=== PATIENT | male | born 1975 | race Hispanic/Latino ===

== ENCOUNTER 2022-09-11 21:49 | Emergency (ER) | payer BC ==
--- OUTSIDE RECORDS SUMMARY | 2022-09-11 21:54 | XMS REPORT | Continuity of Care Document ---
:1975 Author Organization [facility] t Address [address] [facility] [address] [place] [address] Care Team Providers Name Role Phone BUSHRA GOOD Primary Care Physician Unavailable BUSHRA GOOD Attending Clinician Unavailable BUSHRA GOOD Attending Clinician Unavailable 2, [facility] Attending Clinician Unavailable Doctor Unassigned, Pray Attending Clinician Unavailable Chloe Mckeon Attending Clinician Rosemary Santana RN Attending Clinician Unavailable LEXI LAL Attending Clinician Unavailable Only, Michel Db Test Attending Clinician Unavailable Lexi Lal PA-C Attending Clinician CHLOE TINOCO Attending Clinician Unavailable Pina Croonado Attending Clinician PINA MCKENZIE Attending Clinician Unavailable Lab, [facility] Fam Pob I Attending Clinician Unavailable Provider, [facility] Attending Clinician Unavailable Payers Payer Name Policy Type Policy Number Effective Date Expiration Date S [facility] [id number] 2015 00:00:00 Problems Condition Condition Condition Status Onset Resolution Last Treating Co mments Source Name Details Category Date Date Treatment Clinician Date Essential Essential Disease Active Uni vers hypertensi hypertensi 6-14 it y of on on 00:00: [address] Acute left Acute left Disease Active U nivers ankle pain ankle pain 6-14 it y of 00:00: [address] No known No known Disease Unive rs active active ity of problems problems [facility] Allergies, Adverse Reactions, Alerts Allergy Allergy Status Severity Reaction(s) Onset Inactive Treating Comm ents Source Name Type Date Date Clinician NO KNOWN Drug Active Univers ALLERGIE Class ity of S [facility] Social History Social Habit Start Date Stop Date Quantity Comments Source Exposure to 2022-04-19 2022-04-29 Not sure [facility]-CoV-2 00:00:00 08:07:00 [facility] (event) [facility] Tobacco use and 2022-04-29 2022-04-29 Smokeless tobacco Un iversity of exposure 00:00:00 00:00:00 non-user [facility] Alcohol intake 2022-04-29 2022-04-29 Ex-drinker [facility] 00:00:00 00:00:00 (finding) [facility] Sex Ass[birth year] Universit y of 00:00:00 00:00:00 [facility] Smoking Status Start Date Stop Date Source Unknown if ever smoked [facility] Never smoked tobacco [facility] Medications Ordered Filled Start Stop Current Ordering Indication Dosage Frequency Signature Comments Components Source Medication Medication Date Date Medication? Clinician (SIG) Name Name lisinopriL 2021-05 Yes [id number] 10mg Take 1 U nivers 10 mg 2-14 tablet by ity of tablet 00:00: mouth in [place] 00 the Medical morning. [facility] lisinopriL 2021-05 Yes [id number] 10mg Take 1 U nivers 10 mg 2-14 tablet by ity of tablet 00:00: mouth in [place] 00 the Medical morning. [facility] lisinopriL 2021-05 Yes [id number] 10mg Take 1 U nivers 10 mg 2-14 tablet by ity of tablet 00:00: mouth in [place] 00 the Medical morning. [facility] Labs required prior to next refill lisinopriL 2021-05 Yes [id number] 10mg Take 1 U nivers 10 mg 2-14 tablet by ity of tablet 00:00: mouth in [place] 00 the Medical morning. [facility] required prior to next refill lisinopriL 2021-05 [id number] 10mg Take 1 Univers 10 mg 2-14 12-14 tablet by ity of tablet 00:00: 00:00 mouth in [place] 00 :00 the Medical morning. [facility] vitamin Yes 50ug Take 50 Univers B-12 7-15 mcg by ity of (VITAMIN 19:49: mouth [place] B-12) 100 56 daily. Medical mcg tablet Branch vitamin Yes 50ug Take 50 Univers B-12 7-15 mcg by ity of (VITAMIN 19:49: mouth [place] B-12) 100 56 daily. Medical mcg tablet Branch vitamin Yes 50ug Take 50 Univers B-12 7-15 mcg by ity of (VITAMIN 14:49: mouth [place] B-12) 100 56 daily. Medical mcg tablet Branch vitamin Yes 50ug Take 50 Univers B-12 7-15 mcg by ity of (VITAMIN 14:49: mouth [place] B-12) 100 56 daily. Medical mcg tablet Branch vitamin Yes 50ug Take 50 Univers B-12 7-15 mcg by ity of (VITAMIN 14:49: mouth [place] B-12) 100 56 daily. Medical mcg tablet Branch vitamin Yes 50ug Take 50 Univers B-12 7-15 mcg by ity of (VITAMIN 14:49: mouth [place] B-12) 100 56 daily. Medical mcg tablet Branch vitamin Yes 50ug Take 50 Univers B-12 7-15 mcg by ity of (VITAMIN 14:49: mouth [place] B-12) 100 56 daily. Medical mcg tablet Branch vitamin Yes 50ug Take 50 Univers B-12 7-15 mcg by ity of (VITAMIN 14:49: mouth [place] B-12) 100 56 daily. Medical mcg tablet Branch vitamin Yes 50ug Take 50 Univers B-12 7-15 mcg by ity of (VITAMIN 14:49: mouth [place] B-12) 100 56 daily. Medical mcg tablet Branch vitamin Yes 50ug Take 50 Univers B-12 7-15 mcg by ity of (VITAMIN 14:49: mouth [place] B-12) 100 56 daily. Medical mcg tablet Branch vitamin Yes 50ug Take 50 Univers B-12 7-15 mcg by ity of (VITAMIN 14:49: mouth [place] B-12) 100 56 daily. Medical mcg tablet Branch methylPREDN Yes [id number] Take by Univers ISolone 4 6-14 105 mouth ity of mg tablets 00:00: [place]-INSTRU [place] 00 CTIONS. Medical follow Branch package directions lisinopriL 2021-0 Yes [id number] 10mg Take 1 U nivers 10 mg 6-14 tablet by ity of tablet 00:00: mouth [place] 00 daily. Medical Branch methylPREDN 2020-0 Yes [id number] Take by Univers ISolone 4 6-14 105 mouth ity of mg tablets 00:00: SEE-INSTRU [place] 00 CTIONS. Medical follow Branch package directions lisinopriL 2020-0 Yes [id number] 10mg Take 1 U nivers 10 mg 6-14 tablet by ity of tablet 00:00: mouth [place] 00 daily. Medical Branch methylPREDN 2020-0 Yes [id number] Take by Univers ISolone 4 6-14 105 mouth ity of mg tablets 00:00: SEE-INSTRU [place] 00 CTIONS. Medical follow Branch package directions lisinopriL 2020-0 Yes [id number] 10mg Take 1 U nivers 10 mg 6-14 tablet by ity of tablet 00:00: mouth [place] 00 daily. Medical Branch methylPREDN 2020-0 Yes [id number] Take by Univers ISolone 4 6-14 105 mouth ity of mg tablets 00:00: SEE-INSTRU [place] 00 CTIONS. Medical follow Branch package directions lisinopriL 2020-0 Yes [id number] 10mg Take 1 U nivers 10 mg 6-14 tablet by ity of tablet 00:00: mouth [place] 00 daily. Medical Branch methylPREDN 2020-0 Yes [id number] Take by Univers ISolone 4 6-14 105 mouth ity of mg tablets 00:00: SEE-INSTRU [place] 00 CTIONS. Medical follow Branch package directions lisinopriL 2020-0 Yes [id number] 10mg Take 1 U nivers 10 mg 6-14 tablet by ity of tablet 00:00: mouth [place] 00 daily. Medical Branch methylPREDN 2020-0 Yes [id number] Take by Univers ISolone 4 6-14 105 mouth ity of mg tablets 00:00: SEE-INSTRU [place] 00 CTIONS. Medical follow Branch package directions lisinopriL 2020-0 Yes [id number] 10mg Take 1 U nivers 10 mg 6-14 tablet by ity of tablet 00:00: mouth [place] 00 daily. Medical Branch methylPREDN 2020-0 Yes [id number] Take by Univers ISolone 4 6-14 105 mouth ity of mg tablets 00:00: SEE-INSTRU [place] 00 CTIONS. Medical follow Branch package directions lisinopriL 2020-0 Yes [id number] 10mg Take 1 U nivers 10 mg 6-14 tablet by ity of tablet 00:00: mouth [place] 00 daily. Medical Branch methylPREDN 2020-0 Yes [id number] Take by Univers ISolone 4 6-14 105 mouth ity of mg tablets 00:00: SEE-INSTRU [place] 00 CTIONS. Medical follow Branch package directions lisinopriL 0 Yes [id number] 10mg Take 1 U nivers 10 mg 6-14 tablet by ity of tablet 00:00: mouth [place] 00 daily. Medical Branch methylPREDN 2020-0 Yes [id number] Take by Univers ISolone 4 6-14 105 mouth ity of mg tablets 00:00: SEE-INSTRU [place] 00 CTIONS. Medical follow Branch package directions lisinopriL 0 Yes [id number] 10mg Take 1 U nivers 10 mg 6-14 tablet by ity of tablet 00:00: mouth [place] 00 daily. Medical Branch methylPREDN 2020-0 2- No [id number] Take by [facility] ISolone 4 6-14 12-14 105 mouth ity of mg tablets 00:00: 00:00 SEE-INSTRU [place] 00 :00 CTIONS. Medical follow Branch package directions lisinopriL 2- No [id number] 10mg Take 1 Univers 10 mg 6-14 12-14 tablet by ity of tablet 00:00: 00:00 mouth [place] 00 :00 daily. Medical Branch methylPREDN 2020-0 2- No [id number] Take by Univers ISolone 4 6-14 12-14 105 mouth ity of mg tablets 00:00: 00:00 SEE-INSTRU [place] 00 :00 CTIONS. Medical follow Branch package directions lisinopriL 2020-0 2- No [id number] 10mg Take 1 Univers 10 mg 6-14 12-14 tablet by ity of tablet 00:00: 00:00 mouth [place] 00 :00 daily. Medical Branch methylPREDN 2020-0 2- No [id number] Take by Univers ISolone 4 6-14 12-14 105 mouth ity of mg tablets 00:00: 00:00 SEE-INSTRU [place] 00 :00 CTIONS. Medical follow Branch package directions lisinopriL 2- No [id number] 10mg Take 1 Univers 10 mg 6-14 12-14 tablet by ity of tablet 00:00: 00:00 mouth [place] 00 :00 daily. Medical Branch vitamin Yes 50ug Take 50 Univers B-12 5-13 mcg by ity of (VITAMIN 18:16: mouth [place] B-12) 100 15 daily. Medical mcg tablet Branch vitamin Yes 50ug Take 50 Univers B-12 5-13 mcg by ity of (VITAMIN 18:16: mouth [place] B-12) 100 15 daily. Medical mcg tablet Branch vitamin Yes 50ug Take 50 Univers B-12 5-13 mcg by ity of (VITAMIN 18:16: mouth [place] B-12) 100 15 daily. Medical mcg tablet Branch vitamin Yes 50ug Take 50 Univers B-12 5-13 mcg by ity of (VITAMIN 18:16: mouth [place] B-12) 100 15 daily. Medical mcg tablet Branch vitamin Yes 50ug Take 50 Univers B-12 5-13 mcg by ity of (VITAMIN 18:16: mouth [place] B-12) 100 15 daily. Medical mcg tablet Branch vitamin Yes 50ug Take 50 Univers B-12 5-13 mcg by ity of (VITAMIN 18:16: mouth [place] B-12) 100 15 daily. Medical mcg tablet Branch vitamin Yes 50ug Take 50 Univers B-12 5-13 mcg by ity of (VITAMIN 18:16: mouth [place] B-12) 100 15 daily. Medical mcg tablet Branch vitamin Yes 50ug Take 50 Univers B-12 5-13 mcg by ity of (VITAMIN 18:16: mouth [place] B-12) 100 15 daily. Medical mcg tablet Branch lisinopriL Yes [id number] 10mg Take 1 U nivers 10 mg 5-13 tablet by ity of tablet 00:00: mouth [place] 00 daily. Medical Branch lisinopriL 0 Yes [id number] 10mg Take 1 U nivers 10 mg 5-13 tablet by ity of tablet 00:00: mouth [place] 00 daily. Medical Branch lisinopriL Yes [id number] 10mg Take 1 U nivers 10 mg 5-13 tablet by ity of tablet 00:00: mouth [place] 00 daily. Medical Branch lisinopriL Yes [id number] 10mg Take 1 U nivers 10 mg 5-13 tablet by ity of tablet 00:00: mouth [place] 00 daily. Medical Branch lisinopriL Yes [id number] 10mg Take 1 U nivers 10 mg 5-13 tablet by ity of tablet 00:00: mouth [place] 00 daily. Medical Branch lisinopriL Yes [id number] 10mg Take 1 U nivers 10 mg 5-13 tablet by ity of tablet 00:00: mouth [place] 00 daily. Medical Branch lisinopriL 2020- No [id number] 10mg Take 1 Univers 10 mg 5-13 06-14 tablet by ity of tablet 00:00: 00:00 mouth [place] 00 :00 daily. Medical Branch lisinopriL 2020- No [id number] 10mg Take 1 Univers 10 mg 5-13 06-14 tablet by ity of tablet 00:00: 00:00 mouth [place] 00 :00 daily. Medical Branch benzonatate 2017-05 Yes 100mg Take 1 Uni vers 100 mg 2-24 capsule by ity of capsule 00:00: mouth 3 [place] 00 (three) Medical times Branch daily as needed for Cough. acetaminoph 2017-05 Yes 1{tbl} Take 1-2 Univers en-codeine 2-24 tablets by ity of 300-30 mg 00:00: mouth [place] tablet 00 every 4 Medical (four) Branch hours as needed for Pain (scale 4-6) (Cough). azithromyci 2017-05 Yes 250mg Take 1 Uni vers n 2-24 tablet by ity of (ZITHROMAX 00:00: mouth [place] Z-DERRICK) 250 00 SEE-INSTRU Med ical mg tablet CTIONS. Branch Take 500 mg day 1, then 250 mg days 2 to 5. benzonatate 2017-05 Yes 100mg Take 1 Uni vers 100 mg 2-24 capsule by ity of capsule 00:00: mouth 3 [place] 00 (three) Medical times Branch daily as needed for Cough. acetaminoph 2017-05 Yes 1{tbl} Take 1-2 Univers en-codeine 2-24 tablets by ity of 300-30 mg 00:00: mouth [place] tablet 00 every 4 Medical (four) Branch hours as needed for Pain (scale 4-6) (Cough). azithromyci 2017- Yes 250mg Take 1 Uni vers n 2-24 tablet by ity of (ZITHROMAX 00:00: mouth [place] Z-DERRICK) 250 00 SEE-INSTRU Med ical mg tablet CTIONS. Branch Take 500 mg day 1, then 250 mg days 2 to 5. azithromyci 2017-05- No 250mg Take 1 Un dion n 2-24 05-13 tablet by ity of (ZITHROMAX 00:00: 00:00 mouth [place] Z-DERRICK) 250 00 :00 SEE-INSTRU Med ical mg tablet CTIONS. Branch Take 500 mg day 1, then 250 mg days 2 to 5. benzonatate 2017-05- No 100mg Take 1 Un dion 100 mg 2-24 05-13 capsule by ity of capsule 00:00: 00:00 mouth 3 [place] 00 :00 (three) Medical times Branch daily as needed for Cough. acetaminoph 2017-05- No 1{tbl} Take 1-2 Univers en-codeine 2-24 05-13 tablets by it y of 300-30 mg 00:00: 00:00 mouth [place] tablet 00 :00 every 4 Medical (four) Branch hours as needed for Pain (scale 4-6) (Cough). azithromyci 2017-05- No 250mg Take 1 Un dion n 2-24 05-13 tablet by ity of (ZITHROMAX 00:00: 00:00 mouth [place] Z-DERRICK) 250 00 :00 SEE-INSTRU Med ical mg tablet CTIONS. Branch Take 500 mg day 1, then 250 mg days 2 to 5. benzonatate 2017-05- No 100mg Take 1 Un dion 100 mg 2-24 05-13 capsule by ity of capsule 00:00: 00:00 mouth 3 [place] 00 :00 (three) Medical times Branch daily as needed for Cough. acetaminoph 2017-05- No 1{tbl} Take 1-2 Univers en-codeine 2-24 05-13 tablets by it y of 300-30 mg 00:00: 00:00 mouth [place] tablet 00 :00 every 4 Medical (four) Branch hours as needed for Pain (scale 4-6) (Cough). ciprofloxac 2016-0 Yes 500mg Take 1 Uni vers in HCl 5-07 tablet by ity of (CIPRO) 500 00:00: mouth 2 [place] mg tablet 00 (two) Medical times Branch daily. traMADOL 2016-0 Yes 50mg Take 1 Univers (ULTRAM) 50 5-07 tablet by ity of mg tablet 00:00: mouth [place] 00 every 6 Medical (six) Branch hours as needed for Pain (scale 4-6). Leo Lozano PA-C / Trevon Stewart MD ALINE# [id number] DPS# [id number] x Lic.# [id number] NPI# [id number] ciprofloxac 2016-0 Yes 500mg Take 1 Uni vers in HCl 5-07 tablet by ity of (CIPRO) 500 00:00: mouth 2 [place] mg tablet 00 (two) Medical times Branch daily. traMADOL 2016-0 Yes 50mg Take 1 Univers (ULTRAM) 50 5-07 tablet by ity of mg tablet 00:00: mouth [place] 00 every 6 Medical (six) Branch hours as needed for Pain (scale 4-6). Leo Lozano PA-C / Trevon Stewart MD ALINE# [id number] DPS# [id number] x Lic.# [id number] NPI# [id number] ciprofloxac 2015-0 2020- No 500mg Take 1 Un dion in HCl 09-20 tablet by ity of (CIPRO) 500 00:00: 00:00 mouth 2 [place] mg tablet 00 :00 (two) Medical times Branch daily. traMADOL 2016-0 2020- No 50mg Take 1 Univer s (ULTRAM) 50 - 05-13 tablet by it y of mg tablet 00:00: 00:00 mouth [place] 00 :00 every 6 Medical (six) Branch hours as needed for Pain (scale 4-6). Leo Lozano PA-C / Trevon Stewart MD ALINE# [id number] DPS# [id number] x Lic.# [id number] NPI# [id number] ciprofloxac 2015-0 2020- No 500mg Take 1 Un dion in HCl 09-20 tablet by ity of (CIPRO) 500 00:00: 00:00 mouth 2 [place] mg tablet 00 :00 (two) Medical times Branch daily. traMADOL 50mg Take 1 Univer s (ULTRAM) 50 09-20 tablet by it y of mg tablet 00:00: 00:00 mouth [place] 00 :00 every 6 Medical (six) Branch hours as needed for Pain (scale 4-6). Leo Lozano PA-C / Trevon Stewart MD ALINE# [id number] DPS# [id number] x Lic.# [id number] NPI# [id number] Immunizations Ordered Filled Immunization Date Status Comments Sour e Immunization Name Name Influenza Virus 2022-01-15 Completed Universit y of Vaccine 00:00:00 [facility] Influenza Virus 2022-01-15 Completed Universit y of Vaccine 00:00:00 [facility] Influenza Virus 2022-01-15 Completed Universit y of Vaccine 00:00:00 [facility] Influenza Virus 2022-01-15 Completed Universit y of Vaccine 00:00:00 [facility] SARS-COV-2 COVID-19 2021-02-20 Completed Unive rsity of PFIZER VACCINE 00:00:00 [facility] [place] SARS-COV-2 COVID-19 2021-02-20 Completed Unive rsity of PFIZER VACCINE 00:00:00 [facility] [place] SARS-COV-2 COVID-19 2021-02-20 Completed Unive rsity of PFIZER VACCINE 00:00:00 [facility] [place] SARS-COV-2 COVID-19 2021-02-20 Completed Unive rsity of PFIZER VACCINE 00:00:00 [facility] [place] SARS-COV-2 COVID-19 2021-01-09 Completed Unive rsity of PFIZER VACCINE 00:00:00 [facility] [place] SARS-COV-2 COVID-19 2021-01-09 Completed Unive rsity of PFIZER VACCINE 00:00:00 [facility] [place] SARS-COV-2 COVID-19 2021-01-09 Completed Unive rsity of PFIZER VACCINE 00:00:00 [facility] [place] SARS-COV-2 COVID-19 2021-01-09 Completed Unive rsity of PFIZER VACCINE 00:00:00 [facility] [place] Vital Signs Vital Name Observation Time Observation Value Comments Source Systolic blood 2022-04-29 14:27:00 156 mm[Hg] Univer sity of pressure [place] [facility] Diastolic blood 2022-04-29 14:27:00 97 mm[Hg] Unive rsity of pressure [place] [facility] Heart rate 2022-04-29 14:25:00 70 /min Universi ty of [place] [facility] Body temperature 2022-04-29 14:25:00 36.5 Katie Univ ersity of [place] [facility] Respiratory rate 2022-04-29 14:25:00 18 /min Univ ersity of [place] [facility] Body height 2022-04-29 14:25:00 167.6 cm Universi ty of [place] [facility] Body weight 2022-04-29 14:25:00 83.779 kg Universi ty of [place] [facility] BMI 2022-04-29 14:25:00 29.81 kg/m2 Universi ty of [place] [facility] Oxygen saturation in 2022-04-29 14:25:00 97 /min University of Arterial blood by [facility] Pulse oximetry Branch Systolic blood 2020-11-28 19:50:00 139 mm[Hg] Univer sity of pressure [place] [facility] Diastolic blood 2020-11-28 19:50:00 80 mm[Hg] Unive rsity of pressure [place] [facility] Heart rate 2020-11-28 19:50:00 72 /min Universi ty of [place] [facility] Body height 2020-11-28 19:50:00 165.1 cm Universi ty of [place] [facility] Body weight 2020-11-28 19:50:00 82.555 kg Universi ty of [place] [facility] BMI 2020-11-28 19:50:00 30.29 kg/m2 Universi ty of [place] [facility] Oxygen saturation in 2020-11-28 19:50:00 95 /min University of Arterial blood by [facility] Pulse oximetry Branch Systolic blood 2020-10-28 19:15:00 125 mm[Hg] Univer sity of pressure [place] [facility] Diastolic blood 2020-10-28 19:15:00 74 mm[Hg] Unive rsity of pressure [place] [facility] Heart rate 2020-10-28 19:15:00 76 /min Universi ty of [place] [facility] Body temperature 2020-10-28 19:15:00 36.61 Katie [facility] ersity of [place] [facility] Respiratory rate 2020-10-28 19:15:00 18 /min Univ ersity of [place] [facility] Body weight 2020-10-28 19:15:00 83.008 kg Universi ty of [place] [facility] BMI 2020-10-28 19:15:00 29.54 kg/m2 Universi ty of [facility] Oxygen saturation in 2020-10-28 19:15:00 94 /min University of Arterial blood by [facility] Pulse oximetry Branch Systolic blood 2020-09-26 19:01:00 157 mm[Hg] [facility] [place] [facility] Diastolic blood 2020-09-26 19:01:00 86 mm[Hg] [facility] Heart rate 2020-09-26 18:14:00 87 /min Universi ty of [place] [facility] Body temperature 2020-09-26 18:14:00 36.78 Katie [facility] ersity of [place] [facility] Respiratory rate 2020-09-26 18:14:00 18 /min [facility] ersity of [place] [facility] Body height 2020-09-26 18:14:00 167.6 cm Universi ty of [place] [facility] Body weight 2020-09-26 18:14:00 85.639 kg Universi ty of [place] [facility] BMI 2020-09-26 18:14:00 30.47 kg/m2 Universi ty of [place] [facility] Oxygen saturation in 2020-09-26 18:14:00 97 /min University of Arterial blood by [facility] Pulse oximetry Branch Procedures Procedure Date / Time Performed Performing Clinician [facility] e CONSENT/REFUSAL FOR 2022-04-29 14:08:13 Doctor Unassigned, No Un [facility] DIAGNOSIS AND Name Medical Branch TREATMENT XR FOOT 3+ VW LEFT 2020-09-26 19:47:39 Pina Mckenzie [facility] XR FOOT 3+ VW LEFT 2020-09-26 19:47:39 Pina Mckenzie [facility] XR ANKLE 3+ VW LEFT 2020-09-26 19:47:23 Pina Mckenzie [facility] NOTICE OF PRIVACY 2020-09-26 19:24:38 Doctor Unassigned, No [facility] CONSENT/REFUSAL FOR 2020-09-26 19:24:16 Doctor Unassigned, No Un [facility] DIAGNOSIS AND [facility] TREATMENT ASSIGNMENT OF BENEFITS 2020-09-26 19:23:32 Doctor Unassigned, No [facility] Encounters Start End Encounter Admission Attending Care Care Encounter Source Date/Time Date/Time Type Type Clinicians Facility Department ID 2022-10-28 2022-10-28 Outpatient R BUSHRA GOOD [facility] [id number] Univers 10:30:00 10:30:00 BUSHRA GOOD [facility] 2022-04-30 2022-04-30 Marketing Rep 2, Adc Lab [facility] [id number] Univers 09:30:00 09:45:00 Visit XavierGadiel hansensarahgerald ROCCO 350.1.13.1 0 ity of [id number] [id number] Nv dical [facility] [address] [facility] 2022-04-30 2022-04-30 Outpatient R BUSHRA GOOD [facility] [id number] Univers 09:30:00 09:30:00 BUSHRA GOOD [facility] 2022-04-29 2022-04-29 Outpatient R BUSHRA GOOD [facility] [id number] Univers 08:00:00 09:02:46 BUSHRA GOOD [facility] 2022-04-29 2022-04-29 Office Xavier [facility] [id number] Univers 08:00:00 09:02:46 Visit Bushra VALIENTE [id number] ity [place] [id number] Nv dical [facility] [address] [facility] 2022-04-29 2022-04-29 Orders Doctor ELLIOTT [id number] [id number] Univers 00:00:00 00:00:00 Only Unassigned, NAT 350.1.13.10 ity of [place] [facility] 4.2.7.2.686 [place] [id number] [facility] 009 [place] 2021-05-13 2021-05-13 Mansoor Tinoco KYHIPOLITO [id number] Univers 00:00:00 00:00:00 Chloe HEALTH [id number] it y of [facility] [id number] [place] as JOLANTA?BLEA [id number] [address] MEDICAL OFFICE BUILDING 2021-05-12 2021-05-12 Letter LEXI Santana [id number] Univers 00:00:00 00:00:00 (Out) Rosemary JOHNS 350.1.13.10 it y of HOSPITAL 4.2.7.2.686 [place] [id number] [facility] 019 [place] 2021-05-11 2021-05-11 Outpatient R LONNIE [facility] [id number] Univers 12:15:00 13:45:46 LEXI ity [facility] 2021-05-11 2021-05-11 Laboratory Only, Ang Db Test [facility] 1.2.8 40.114 [id number] Univers 12:15:00 12:30:00 Only Lexi Lal 350.1.13.10 ity of [place] [id number] [place] as JOLANTA?BLEA [id number] [facility] [address] [place] [facility] 2021-04-29 2021-04-29 Outpatient R EARNEST [facility] [id number] Univers 08:30:00 08:30:00 CHLOE ity of [facility] 2021-03-27 2021-03-27 [facility] [id number] Univers 00:00:00 00:00:00 Chloe HEALTH [id number] it y of [facility] [id number] Min[place] as JOLANTA?BLEA [id number] [address] [facility] 2020-11-28 2020-11-28 Office Jonah [facility] [id number] Univers 14:26:52 15:17:58 Visit Pina [place] 350.1.13.10 ity of [place] Profess[place] [id number] Nv dical nal 044 [facility] 2020-11-28 2020-11-28 [id number] Univers 14:30:00 14:30:00 PINA reis o [facility] 2020-10-28 2020-10-28 Office [facility] [id number] [id number] Univers 14:08:20 14:37:09 Visit Pina [place] 350.1.13.10 ity of [id number] [phone] [facility] 2020-10-28 2020-10-28 Outpatient [facility] [id number] Univers 14:00:00 14:00:00 PINA yuen [facility] 2020-10-02 2020-10-02 Outpatient [facility] [id number] Univers 08:45:00 08:45:00 PINA yuen [facility] 2020-10-02 2020-10-02 Marketing Rep 2, Adc Lab [facility] [id number] Univers 08:27:37 08:42:37 Visit Jonah Pina [place] [id number] [id number] [phone] [facility] 353 [facility] 2020-10-02 2020-10-02 Telephone [facility] [id number] Univers 00:00:00 00:00:00 Pina [facility] [id number] i ty smith [place] [id number] [place] [phone] [facility] 2020-09-26 2020-09-26 [facility] [id number] Univers 14:22:24 23:59:00 Encounter Pina [place] [id number] ity of [place] [id number] [facility] [phone] [address] 2020-09-26 2020-09-26 Hospital [facility] [id number] Univers 14:15:00 14:21:00 Encounter Pina [place] [id number] ity of [place] [id number] [facility] [phone] [address] 2020-09-26 2020-09-26 Office [facility] [id number] Univers 12:41:17 13:44:57 Visit Pina [place] [id number] [id number] [phone] N[place] dical nal 044 [facility] [address] 2020-09-26 2020-09-26 Outpatient [facility] [id number] Univers 13:30:00 13:30:00 PINA ity o iron [facility] 2020-09-26 2020-09-26 Outpatient Charlene [facility] [id number] Univers 11:00:00 11:00:00 CHLOE duartey of [facility] 2020-09-25 2020-09-25 Outpatient [facility] [id number] Univers 09:00:00 09:00:00 PINA ity o f [facility] 2020-09-16 2020-09-16 Laboratory Lab, Adc Fam Pob I [facility] [id number] Univers 11:02:57 11:20:44 Only Chloe Tinoco [id number] ity of [place] [id number] [place] Profess[place] [phone] N[place] dical nal 044 [facility] 2020-09-16 2020-09-16 Outpatient Charlene [facility] [id number] Univers 11:20:00 11:20:00 CHLOE itrigoberto of [facility] Branch 2020-09-16 2020-09-16 Letter Provider, [facility] [id number] Univers 00:00:00 00:00:00 (Out) [facility] [id number] ity of [facility] [id number] [place] Profess[place] [phone] N[place] dical nal 044 [facility] Results Test Description Test Time Test Comments Results Result Sour e Comments XR ANKLE 3+ VW 2020-09-26 HISTORY: ?Pain. Unive rsity of LEFT 19:53:15 FINDINGS: [place], [place] [facility] [place] lateral, oblique Branch views of left ankle showed no acute fractureor dislocation. No significant changes of arthritis or aggressive bonelesions seen. No significant ankle joint effusion. No heel spur. CONCLUSIONS: No acute fracture or dislocation in left ankle. [facility], Radiant Results Inft User - 09/26/2020 2:54 PM CDTHISTORY: Pain.FINDINGS: AP, lateral, oblique views of left ankle showed no acute fractureor dislocation. No significant changes of arthritis or aggressive bonelesions seen. No significant ankle joint effusion. No heel spur.CONCLUSIONS : No acute fracture or dislocation in left ankle. XR FOOT 3+ VW 2020-09-26 HISTORY: ?Pain. Univer sity of LEFT 19:52:50 FINDINGS: AP, [place] [facility] lateral, oblique Branch views of left foot showed no acute fractureor dislocation. No significant changes of arthritis or aggressive bonelesions seen. CONCLUSIONS: No acute fracture or dislocation in left foot. [facility], Radiant Results Inft User - 09/26/2020 2:53 PM CDTHISTORY: Pain.FINDINGS: AP, lateral, oblique views of left foot showed no acute fractureor dislocation. No significant changes of arthritis or aggressive bonelesions seen.CONCLUSIONS : No acute fracture or dislocation in left foot.
[2022-09-11] MEDS ORDERED: HYDROCODONE/APAP 10/325 TAB ONE (23:13)
--- NOTE | 2022-09-12 00:57 | ER ---
Nurse's Notes [facility] Name: Efrain Mckeon Age: 47 yrs Sex: Male : 1975 Arrival Date: 09/11/2022 Time: 21:49 Bed Treatment Private MD: Diagnosis: Multiple fractures of ribs, left side Presentation: 09/11 22:24 Chief complaint: Patient states: "when I was taking a shower, i put my foot on top of pf1 the tub and fell on the left side of my ribs. It hurts to breathe and feels like something moved inside after I fell." Pt denies LOC and hitting head. Coronavirus screen: Vaccine status: Patient reports receiving the 2nd dose of the covid vaccine. Ebola Screen: No symptoms or risks identified at this time. Initial Sepsis Screen: Does the patient meet any 2 criteria? No. Patient's initial sepsis screen is negative. Does the patient have a suspected source of infection? No. Patient's initial sepsis screen is negative. Risk Assessment: Do you want to hurt yourself or someone else? Patient reports no desire to harm self or others. Onset of symptoms was September 11, 2022. 22:24 Method Of Arrival: Ambulatory pf1 22:24 Acuity: TIERA 4 pf1 Triage Assessment: 22:27 General: Appears uncomfortable, Behavior is cooperative. Pain: Complains of pain in pf1 left ribs. Pain: Pain currently is 10 out of 10 on a pain scale. Quality of pain is described as stabbing, Aggravated by inspiration. Neuro: Amezcua Agitation-Sedation Scale (RASS): 0 - Alert and Calm Level of Consciousness is awake, alert, obeys commands, Oriented to person, place, time, situation, Appropriate for age. Cardiovascular: Patient's skin is warm and dry. Respiratory: Airway is patent Respiratory effort is even, unlabored, Respiratory pattern is regular, symmetrical. Derm: Skin is pink, warm \\T\\ dry. Musculoskeletal: Range of motion: intact in all extremities. Historical: - Allergies: 22:26 NKA; pf1 - Home Meds: 22:26 None [Active]; pf1 - PMHx: 22:26 Hypertensive disorder; pf1 - PSHx: 22:26 Hernia; pf1 - Immunization history:: Adult Immunizations up to date. - Social history:: Smoking status: Patient denies any tobacco usage or history of. Screenin:54 [facility] ED Fall Risk Assessment (Adult) History of falling in the last 3 months, mb9 including since admission Yes- single mechanical fall (1 pt) Confusion or Disorientation No (0 pts) Intoxicated or Sedated No (0 pts) Impaired Gait No (0 pts) Mobility Assist Device Used No (0 pt) Altered Elimination No (0 pt) Score/Fall Risk Level 0 - 2 = Low Risk Oriented to surroundings, Maintained a safe environment, Educated pt \\T\\ family on fall prevention, incl call for assistance when getting out of bed. Abuse screen: Denies threats or abuse. Nutritional screening: No deficits noted. Tuberculosis screening: No symptoms or risk factors identified. Assessment: 22:28 Reassessment: see triage assessment. pf1 23:24 Reassessment: Patient and/or family updated on plan of care and expected duration. Pain mb9 level reassessed. Patient is alert, oriented x 3, equal unlabored respirations, skin warm/dry/pink. Patient states feeling better. Patient states symptoms have improved. 09/12 00:30 Reassessment: Patient appears in no apparent distress at this time. No changes from pf1 previously documented assessment. Patient is alert, oriented x 3, equal unlabored respirations, skin warm/dry/pink. Patient states feeling better. Patient states symptoms have improved. 01:30 Reassessment: Patient appears in no apparent distress at this time. No changes from pf1 previously documented assessment. Patient and/or family updated on plan of care and expected duration. Pain level reassessed. Patient is alert, oriented x 3, equal unlabored respirations, skin warm/dry/pink. Patient states feeling better. Patient states symptoms have improved. Vital Signs: 09/11 22:24 BP 146 / 80; Pulse 60; Resp 18; Temp 98.1; Pulse Ox 100% ; Weight 77.11 kg; Height 5 pf1 ft. 5 in. ; Pain 10/10; 23:28 BP 146 / 95; Pulse 54; Resp 16; Pulse Ox 99% ; mb9 09/12 00:30 BP 136 / 72; Pulse 73; Resp 18; Pulse Ox 100% on R/A; Pain 3/10; pf1 01:30 BP 132 / 68; Pulse 69; Resp 18; Temp 98(O); Pulse Ox 100% on R/A; Pain 3/10; pf1 09/11 22:24 Body Mass Index 28.29 (77.11 kg, 165.1 cm) pf1 09/11 22:24 Pain Scale: Adult pf1 09/12 00:30 Pain Scale: Adult pf1 01:30 Pain Scale: Adult pf1 ED Course: 09/11 21:52 Patient arrived in ED. jj6 22:09 Drew Mancuso PA is PHCP. darinel 22:09 Cheng John MD is Attending Physician. [facility] 22:26 Triage completed. pf1 22:28 Arm band placed on. pf1 22:54 Placed in gown. Bed in low position. Call light in reach. Client placed on continuous mb9 cardiac and pulse oximetry monitoring. NIBP monitoring applied. 22:54 No provider procedures requiring assistance completed. Patient did not have IV access mb9 during this emergency room visit. 23:22 Ribs Left XRAY In Process Unspecified. EDMS 23:32 Jacqui Irizarry, RN is Primary Nurse. mb9 09/12 01:31 INCENTIVE SPIROMETRY Sent. pf1 Administered Medications: 09/11 23:09 Drug: Hailey PO 10 mg-325 mg 1 tabs Route: PO; mb9 23:38 Follow up: Response: No adverse reaction mb9 Medication: 22:29 VIS not applicable for this client. pf1 Outcome: 09/12 00:56 Discharge ordered by . [facility] 01:38 Discharged to home ambulatory, with family. pf1 01:38 Condition: improved 01:38 Discharge instructions given to patient, family, Instructed on discharge instructions, follow up and referral plans. Demonstrated understanding of instructions, follow-up care, medications, Prescriptions given X 2. 01:39 Patient left the ED. pf1 Signatures: Dispatcher [employer] EDMS Drew Mancuso PA PA jmm Jeffries, Jennifer jj6 Jacqui Irizarry, RN RN mb9 Cornelia balderas RN RN pf1
--- NOTE | 2022-09-12 00:57 | EDPHYS ---
Physician Documentation [facility] Name: Efrain Mckeon Age: 47 yrs Sex: Male : 1975 Arrival Date: 09/11/2022 Time: 21:49 Bed Treatment Private MD: ED Physician Cheng John HPI: 09/11 22:38 This 47 yrs old Male presents to ER via Ambulatory with complaints of Fall jmm Injury. 22:38 Details of fall: The patient fell from an upright position. Onset: The symptoms/episode jmm began/occurred acutely, just prior to arrival. Associated injuries: The patient sustained injury to the chest. The patient has not experienced similar symptoms in the past. This is a 47-year-old male with history of hypertension the presents emerged part with left-sided rib pain following a fall which occurred earlier this evening. Denies hitting his head. Denies loss consciousness. Denies other injury.. Historical: - Allergies: 22:26 NKA; pf1 - Home Meds: 22:26 None [Active]; pf1 - PMHx: 22:26 Hypertensive disorder; pf1 - PSHx: 22:26 Hernia; pf1 - Immunization history:: Adult Immunizations up to date. - Social history:: Smoking status: Patient denies any tobacco usage or history of. ROS: 22:38 Constitutional: Negative for fever, chills, and weight loss. jmm 22:38 Respiratory: Negative for shortness of breath, cough, wheezing, and pleuritic chest pain, Abdomen/GI: Negative for abdominal pain, nausea, vomiting, diarrhea, and constipation, Back: Negative for injury and pain, MS/Extremity: Negative for injury and deformity, Skin: Negative for injury, rash, and discoloration, Neuro: Negative for headache, weakness, numbness, tingling, and seizure, Psych: Negative for depression, anxiety, suicide ideation, homicidal ideation, and hallucinations. 22:38 Cardiovascular: Positive for chest pain, of the left lateral anterior chest and left nipple. 22:38 All other systems are negative. Exam: 22:38 Constitutional: This is a well developed, well nourished patient who is awake, alert, jmm and in no acute distress. Head/Face: atraumatic. Eyes: EOMI, no conjunctival erythema appreciated ENT: Moist Mucus Membranes Neck: Trachea midline, Supple 22:38 Cardiovascular: Regular rate and rhythm. No edema appreciated Respiratory: Normal respirations, no respiratory distress appreciated Abdomen/GI: Non distended Back: Normal ROM Skin: General appearance color normal MS/ Extremity: Moves all extremities, no obvious deformities appreciated, no edema noted to the lower extremities Neuro: Awake and alert Psych: Behavior is normal, Mood is normal, Patient is cooperative and pleasant 22:38 Chest/axilla: Inspection: abscess, Palpation: tenderness, that is moderate, of the left lateral anterior chest. Vital Signs: 22:24 BP 146 / 80; Pulse 60; Resp 18; Temp 98.1; Pulse Ox 100% ; Weight 77.11 kg; Height 5 pf1 ft. 5 in. ; Pain 10/10; 23:28 BP 146 / 95; Pulse 54; Resp 16; Pulse Ox 99% ; mb9 09/12 00:30 BP 136 / 72; Pulse 73; Resp 18; Pulse Ox 100% on R/A; Pain 3/10; pf1 01:30 BP 132 / 68; Pulse 69; Resp 18; Temp 98(O); Pulse Ox 100% on R/A; Pain 3/10; pf1 09/11 22:24 Body Mass Index 28.29 (77.11 kg, 165.1 cm) pf1 09/11 22:24 Pain Scale: Adult pf1 09/12 00:30 Pain Scale: Adult pf1 01:30 Pain Scale: Adult pf1 MDM: 09/11 22:45 Patient medically screened. [facility] 23:14 Differential diagnosis: fracture, Contusion. Data reviewed: vital signs, nurses notes. [facility] 09/12 00:43 Consideration of Admission/Observation. I considered the following discharge [facility] prescriptions or medication management in the emergency department Medications were administered in the Emergency Department. See MAR. Independent interpretation of the following test(s) in the Emergency Department X-Ray: My interpretation is no pneumothorax. Historians other than the Patient: family. Counseling: I had a detailed discussion with the patient and/or guardian regarding: the historical points, exam findings, and any diagnostic results supporting the discharge/admit diagnosis, radiology results, the need for outpatient follow up, to return to the emergency department if symptoms worsen or persist or if there are any questions or concerns that arise at home. Refusal of service: The patient/guardian displays adequate decision making capability and despite a detailed discussion of alternatives, benefits, risks, and consequences refuses: Admission to the hospital for further work-up and treatment. 09/11 22:38 Order name: Ribs Left XRAY [facility] 09/12 00:45 Order name: INCENTIVE SPIROMETRY [facility] Administered Medications: 09/11 23:09 Drug: Reeders PO 10 mg-325 mg 1 tabs Route: PO; mb9 23:38 Follow up: Response: No adverse reaction mb9 Disposition: 09/12 05:47 Co-signature as Attending Physician, Cheng John MD I agree with the assessment sp4 and plan of care. I reviewed the patient's care provided by the Advanced Practice Provider and agree with the diagnosis and treatment plan. Disposition Summary: 09/12/22 00:56 Discharge Ordered Location: Home [facility] Condition: Stable [facility] Diagnosis - Multiple fractures of ribs, left side jm Followup: [facility] - With: Private Physician - When: 2 - 3 days - Reason: Recheck today's complaints, Continuance of care, Re-evaluation by your physician Discharge Instructions: - Discharge Summary Sheet [facility] - Rib Fracture [facility] - How to Use an Incentive Spirometer [facility] Forms: - Medication Reconciliation Form [facility] - Thank You Letter [facility] - Antibiotic Education [facility] - Prescription Opioid Use [facility] - Work release form pf1 Prescriptions: - Ultracet 37.5-325 mg Oral Tablet - take 1 tablet by ORAL route every 6 hours - for up to 5 days; do not exceed 8 jmm tablets per day.; 30 tablet; Refills: 0, Product Selection Permitted - Diclofenac Sodium 75 mg Oral Tablet Sustained Release - take 1 tablet by ORAL route 2 times per day; 30 tablet; Refills: 0, Product [facility] Selection Permitted Signatures: Dispatcher [employer] Drew Ferrara PA PA jmm Breneman, Mary Beth RN RN mb9 Cornelia balderas RN RN pf1 Cheng John MD MD sp4
[2022-09-12 01:44] VITALS: TEMP 98.1
[2022-09-12 01:45] VITALS: BP 146/95; O2SAT 99
--- NOTE | 2022-09-13 16:15 | RAD REPORT ---
EXAM DESCRIPTION: RAD - Ribs Left - 09/11/2022 11:20 pm CLINICAL HISTORY: Fall with pain. TECHNIQUE: Left RIBS 3 views. COMPARISON: None. FINDINGS: There are minimally displaced fractures involving the anterolateral aspects of the left se venth, eighth, and ninth ribs. There is no pneumothorax. There is no pleural fluid collection. IMPRESSION: 1. Fractures left 7th, 8th, 9th ribs. Electronically signed by: Hank Da Silva MD 09/11/2022 11:39 PM CDT Due to temporary technical issues with the PACS/Fluency reporting system, reports are being signed by the in house radiologists without review as a courtesy to insure prompt reporting. The interpreting radiologist is fully responsible for the content of the report.
== END 2022-09-12 01:39 | disposition home or self-care (01) ==
LOC: ER 21:49
DX: S22.42XA Multiple fractures of ribs, left side, initial encounter for closed fracture (principal)
CPT/HCPCS: 99284